=== PATIENT | male | born 2000 | race Caucasian/White ===

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

== ENCOUNTER 2019-01-25 09:27 | Emergency (ER) | payer MEDICAID, OTHER ==
[2019-01-25 09:49] VITALS: BP 113/70
--- NOTE | 2019-01-25 10:27 | UC ---
UC General HPI - HPI Summary HPI Summary: Patient presents to urgent care for evaluation of hematuria. Patient states yesterday he was at work only. Patient says when he went home he urinated and had some bright blood in the toilet. No clots. Patient states he had one more episode last night. Patient states since this time he's not having any more bleeding. No pain. No discharge. Patient states he is urinating a little more than normal. No nausea or vomiting. No back pain. No history of similar. Patient states he is sexually active but uses condom every time. Patient without any lesions. No pain with intercourse. No pain with erection or ejaculation. t. Patient without any blood thinners. Patient without any pain. Patient's medications reviewed this visit - History of Current Complaint Chief Complaint: UCGU Stated Complaint: URINARY COMPLAINT Time Seen by Provider: 01/25/19 10:11 Hx Obtained From: Patient Pain Intensity: 0 - Allergy/Home Medications Allergies/Adverse Reactions: Allergies Allergy/AdvReac Type Severity Reaction Status Date / Time No Known Allergies Allergy Verified 10/20/18 16:54 PMH/Surg Hx/FS Hx/Imm Hx Previously Healthy: Yes - Surgical History Surgical History: None - Family History Known Family History: Positive: Non-Contributory Negative: Hypertension, Blood Disorder - Social History Occupation: Employed Full-time Lives: With Family Alcohol Use: Rare Alcohol Amount: 1-2 beers Substance Use Type: Marijuana Substance Use Comment - Amount & Last Used: daily Smoking Status (MU): Smoker, Current Status Unknown Type: eCigarettes Amount Used/How Often: "a lot" Have You Smoked in the Last Year: Yes - Immunization History Most Recent Influenza Vaccination: unknown Most Recent Tetanus Shot: UNKNOWN Most Recent Pneumonia Vaccination: never Vaccination Up to Date: Yes Review of Systems All Other Systems Reviewed And Are Negative: Yes Constitutional: Positive: Negative Skin: Positive: Negative Eyes: Positive: Negative ENT: Positive: Negative Respiratory: Positive: Negative Cardiovascular: Positive: Negative Gastrointestinal: Positive: Negative Genitourinary: Positive: Hematuria Is Patient Immunocompromised?: No Physical Exam - Summary Physical Exam Summary: Vital Signs Reviewed: Yes A+Ox3, no distress Eyes: Conjunctiva Clear, JACK. EOM intact and full ENT: Hearing grossly normal TM x 2 clear, mmoist, uvula midline, no exudate, no erythema Neck: Positive: Supple Respiratory: Positive: No respiratory distress, No accessory muscle use + CTA throughout no w/r Cardiovascular: RRR nl s1, s2 no m/r CBT <2 sec abd soft + BS nt/nd no guarding, no distension, no CVA Musculoskeletal Exam: REYES x 4 without difficulty Strength Intact, ROM Intact Neurological: Positive: Alert, + sensation throughout Psychological: Positive: Normal Response To examiner Skin: Positive: no rash, no ecchymosis Triage Information Reviewed: Yes Vital Signs: Initial Vital Signs Temp 97.9 F 01/25/19 09:44 Pulse 86 01/25/19 09:44 Resp 16 01/25/19 09:44 BP 113/70 01/25/19 09:44 Pulse Ox 99 01/25/19 09:44 Course/Dx - Course Course Of Treatment: Patient presents to urgent care reporting hematuria last night. Patient states is improved but urine seems darker. Patient with frequency but no urgency or dysuria. On exam vital signs are stable. Patient's urine has slowed a little bit of protein. Patient does appear to have some sediment in the urine. We'll start antibiotics. We'll culture we will also do GC chlamydia. Discussed with patient return precautions. Patient comfortable agreement with plan. Patient given contact information for the physician referral center. - Diagnoses Provider Diagnosis: Hematuria, Frequency of urination Discharge ED - Sign-Out/Discharge Documenting (check all that apply): Patient Departure All imaging exams completed and their final reports reviewed: No Studies - Discharge Plan Condition: Stable Disposition: HOME Prescriptions: Amoxicillin PO (*) [Amoxicillin 500 MG CAP*] 500 mg PO Q12H #14 cap Patient Education Materials: Hematuria (ED), Urinary Urgency and Frequency (DC) Referrals: [facility] [place] [place] [facility] [Outside] No Primary Care Phys,NOPCP [Primary Care Provider] - Additional Instructions: - stay well hydrated. Drink plenty of non-alcoholic, non-caffinated beverages - Take antibiotics as prescribed - As discussed, your urine has been sent for additional testing for both urinary tract infection and for sexually transmitted infections. If you need a change in your symptoms, you will be contacted by a care steam conditioner filling. - If you have any questions or concerns, contact your doctor or go to the emergency department for further testing and evaluation - Billing Disposition and Condition Condition: STABLE Disposition: Home
[2019-01-26 13:56] LABS: Chlamydia trachomatis NAA Positive (Negative); Neisseria gonorrhoeae (GC) NAA Negative (Negative)
--- NOTE | 2019-01-26 16:01 | UC ---
- Progress Note Progress Note: Nurse called patient, aware of dx and need for treatment, will return tomorrow for treatment with observed therapy. -Bertha Alex PAC Course/Dx - Diagnoses Provider Diagnoses: Hematuria, Frequency of urination Discharge ED - Sign-Out/Discharge Documenting (check all that apply): Patient Departure All imaging exams completed and their final reports reviewed: No Studies - Discharge Plan Condition: Stable Disposition: HOME Prescriptions: Amoxicillin PO (*) [Amoxicillin 500 MG CAP*] 500 mg PO Q12H #14 cap Patient Education Materials: Hematuria (ED), Urinary Urgency and Frequency (DC) [place]: [facility] [place] [facility] [[place]] No Primary Care Phys,NOPCP [Primary Care Provider] - Additional Instructions: - stay well hydrated. Drink plenty of non-alcoholic, non-caffinated beverages - Take antibiotics as prescribed - As discussed, your urine has been sent for additional testing for both urinary tract infection and for sexually transmitted infections. If you need a change in your symptoms, you will be contacted by a care operations team leader. - If you have any questions or concerns, contact your doctor or go to the emergency department for further testing and evaluation - Billing Disposition and Condition Condition: STABLE Disposition: Home
== END 2019-01-25 11:01 | disposition home or self-care (01) ==
LOC: UCEAST 09:27
DX: R35.0 Frequency of micturition (principal); R31.9 Hematuria, unspecified; F17.290 Nicotine dependence, other tobacco product, uncomplicated
CPT/HCPCS: 81003; 87077; 87086; 87491; 87591; 99212; G0463

== ENCOUNTER 2019-01-27 16:24 | Emergency (ER) | payer OTHER ==
--- NOTE | 2019-01-27 16:28 | UC ---
Complaint Male HPI - HPI Summary HPI Summary: 18 yo male presents requesting treatment for chlamydia. Pt tells me that he was here a few days ago for hematuria and tested positive for chlamydia. He is here for treatment. Has had no more blood in his urine, but does still have a slight burning with urination. Has not had any sexual intercourse since last visit. Denies fever - History of Current Complaint Stated Complaint: PERSONAL Time Seen by Provider: 01/27/19 16:28 Hx Obtained From: Patient Onset/Duration: Sudden Onset Severity Initially: Mild Severity Currently: Mild Pain Intensity: 2 Pain Scale Used: 0-10 Numeric - Allergies/Home Medications Allergies/Adverse Reactions: Allergies Allergy/AdvReac Type Severity Reaction Status Date / Time No Known Allergies Allergy Verified 10/20/18 16:54 PMH/Surg Hx/FS Hx/Imm Hx - Additional Past Medical History Additional PMH: None - Surgical History Surgical History: None - Family History Known Family History: Positive: Non-Contributory Negative: Hypertension, Blood Disorder - Social History Lives: With Family Alcohol Use: Rare Alcohol Amount: 1-2 beers Substance Use Type: Marijuana Substance Use Comment - Amount & Last Used: daily Smoking Status (MU): Smoker, Current Status Unknown Type: eCigarettes Amount Used/How Often: "a lot" Have You Smoked in the Last Year: Yes - Immunization History Most Recent Influenza Vaccination: unknown Most Recent Tetanus Shot: UNKNOWN Most Recent Pneumonia Vaccination: never Vaccination Up to Date: Yes Review of Systems All Other Systems Reviewed And Are Negative: No Constitutional: Positive: Negative Skin: Positive: Negative Respiratory: Positive: Negative Cardiovascular: Positive: Negative Genitourinary: Positive: Dysuria Neurological: Positive: Negative Psychological: Positive: Negative Physical Exam - Summary Physical Exam Summary: GENERAL: NAD. WDWN. No pain distress. SKIN: No rashes, sores, lesions, or open wounds. NECK: Supple. Nontender. No lymphadenopathy. CHEST: CTAB. No r/r/w. No accessory muscle use. Breathing comfortably and in no distress. CV: RRR. Pulses intact. Cap refill <2seconds ABDOMEN: Soft. NTTP. Bowel sounds present NEURO: Alert. PSYCH: Age appropriate behavior. Triage Information Reviewed: Yes Vital Signs: Vital Signs: Temp Pulse Resp BP Pulse Ox 98.7 F 67 16 134/53 100 01/27/19 16:29 01/27/19 16:29 01/27/19 16:29 01/27/19 16:29 01/27/19 16:29 Vital Signs Reviewed: Yes Complaint Male Course/Dx - Course Course Of Treatment: Declined exam today. In the clinic he was treated with 1gm of azithromycin. Advised no sex for 1 week - Differential Dx/Diagnosis Provider Diagnosis: Chlamydia Discharge ED - Sign-Out/Discharge Documenting (check all that apply): Patient Departure All imaging exams completed and their final reports reviewed: No Studies - Discharge Plan Condition: Stable Disposition: HOME Patient Education Materials: Chlamydia (ED) Referrals: No Primary Care Phys,NOPCP [Primary Care Provider] - Additional Instructions: If you develop a fever, shortness of breath, chest pain, new or worsening symptoms - please call your PCP or go to the ED immediately. You were treated for Chlamydia today. Please do not engage in sexual activity at least 1 week from today - Billing Disposition and Condition Condition: STABLE Disposition: Home
[2019-01-27 16:37] VITALS: BP 134/53
[2019-01-27] MEDS ORDERED: Azithromycin TAB* 250 MG PO ONE (16:40)
== END 2019-01-27 16:51 | disposition home or self-care (01) ==
LOC: UCEAST 16:24
DX: A74.9 Chlamydial infection, unspecified (principal); R31.9 Hematuria, unspecified; F17.290 Nicotine dependence, other tobacco product, uncomplicated
CPT/HCPCS: 99211; A9270-GY; G0463

== ENCOUNTER 2019-04-23 10:38 | Emergency (ER) | payer OTHER ==
[2019-04-23 11:07] VITALS: BP 140/77
--- NOTE | 2019-04-23 11:39 | UC ---
HPI Febrile Illness - HPI Summary HPI Summary: fever headache/ sinus pressure no drainage for 3 days. sore throat, w/ occasional dry cough. denies sick contacts. able to drink fluids w/ no issues. - History of Current Complaint Chief Complaint: UCGeneralIllness Time Seen by Provider: 04/23/19 11:38 Hx Obtained From: Patient Pain Intensity: 7 Aggravating Factors: Nothing Alleviating Factors: Nothing - Allergy/Home Medications Allergies/Adverse Reactions: Allergies Allergy/AdvReac Type Severity Reaction Status Date / Time No Known Allergies Allergy Verified 04/23/19 11:07 Home Medications: Home Medications Prazosin 5 mg CAP [Minipress CAP*] 5 mg PO DAILY 04/23/19 [History Confirmed ] PMH/Surg Hx/FS Hx/Imm Hx - Additional Past Medical History Additional PMH: no chronic issues Previously Healthy: Yes - Surgical History Surgical History: None - Family History Known Family History: Positive: Non-Contributory Negative: Hypertension, Blood Disorder - Social History Alcohol Use: Occasionally Alcohol Amount: 1-2 beers Substance Use Type: Marijuana Substance Use Comment - Amount & Last Used: daily Smoking Status (MU): Heavy Every Day Tobacco Smoker Type: eCigarettes Amount Used/How Often: "a lot" Have You Smoked in the Last Year: Yes - Immunization History Most Recent Influenza Vaccination: unknown Most Recent Tetanus Shot: UNKNOWN Most Recent Pneumonia Vaccination: never Vaccination Up to Date: Yes Review of Systems All Other Systems Reviewed And Are Negative: Yes Constitutional: Positive: Fever. Negative: Chills, Fatigue ENT: Positive: Sore Throat, Sinus Congestion, Other. Negative: Ear Ache, Nasal Discharge, Sinus Pain/Tenderness Respiratory: Positive: Cough - dry. Negative: Shortness Of Breath Gastrointestinal: Negative: Vomiting, Diarrhea Neurological: Positive: Headache Physical Exam Triage Information Reviewed: Yes Appearance: Well-Appearing Vital Signs: Initial Vital Signs Temp 100.4 F 04/23/19 11:04 Pulse 93 04/23/19 11:04 Resp 18 04/23/19 11:04 BP 140/77 04/23/19 11:04 Pulse Ox 99 04/23/19 11:04 Vital Signs Reviewed: Yes Eyes: Positive: Conjunctiva Clear ENT: Positive: Normal ENT inspection, Uvula midline. Negative: Sinus tenderness Neck: Positive: Supple, Nontender, No Lymphadenopathy Respiratory Exam: Normal Cardiovascular Exam: Normal Neurological: Positive: Alert Skin: Negative: Rashes Course/Dx - Course Course Of Treatment: Viral syndrome symptoms, acute in a pt. who is febrile today. rapid flu neg. rapid strep neg. able to maintain hydration and looks well on exam, no findings on exam. if worsening should return. increased hydration and rest for now. - Febrile Illness Differential Diagnoses: Fever of Unknown Origin, Other: - Diagnoses Provider Diagnosis: Viral syndrome Discharge ED - Sign-Out/Discharge Documenting (check all that apply): Patient Departure All imaging exams completed and their final reports reviewed: No Studies - Discharge Plan Condition: Good Disposition: HOME Patient Education Materials: Pharyngitis (ED) Referrals: No Primary Care Phys,NOPCP [Primary Care Provider] - Additional Instructions: If worsening please return. This is viral and will go away on its own. - Billing Disposition and Condition Condition: GOOD Disposition: Home - Attestation Statements Provider Attestation: Per institutional requirements, I have reviewed the chart, however, I was not consulted specifically or made aware of this patient by the midlevel provider. I did not personally evaluate, interact with , or disposition this patient.
[2019-04-23 12:05] LABS: Influenza A Molecular NEGATIVE (Negative); Influenza B Molecular NEGATIVE (Negative)
[2019-04-23] MEDS ORDERED: Acetaminophen TAB* 325 MG PO ONE (12:26)
== END 2019-04-23 12:30 | disposition home or self-care (01) ==
LOC: UCEAST 10:38
DX: B34.9 Viral infection, unspecified (principal); R51 Headache; J34.89 Other specified disorders of nose and nasal sinuses; J02.9 Acute pharyngitis, unspecified; R05 Cough; F17.210 Nicotine dependence, cigarettes, uncomplicated
CPT/HCPCS: 87651; 99211; A9270-GY; G0463